=== PATIENT | male | born 1985 | race Caucasian/White ===

== ENCOUNTER 2016-09-29 16:02 | Emergency (ER) | payer OTHER ==
[~2016-09-29] VITALS: Ht 167.6 cm; Wt 90.7 kg
[2016-09-29] MEDS ORDERED: IBUPROFEN 600600 M1 PO (17:26)
[2016-09-29 17:44] VITALS: BP 126/77
== END 2016-09-29 17:44 | disposition home or self-care (01) ==
LOC: ER 16:02
DX: S61.213A Laceration without foreign body of left middle finger without damage to nail, initial encounter (principal); W27.8XXA Contact with other nonpowered hand tool, initial encounter; Y93.89 Activity, other specified; Y92.89 Other specified places as the place of occurrence of the external cause; Y99.0 Civilian activity done for income or pay

== ENCOUNTER 2016-10-11 16:23 | Emergency (ER) | payer OTHER ==
[~2016-10-11] VITALS: Ht 182.9 cm; Wt 79.4 kg
[~2016-10-11 16:23] MED LIST: IBUPROFEN 600600 M1 PO
[2016-10-11 16:38] VITALS: BP 130/79
== END 2016-10-11 17:03 | disposition home or self-care (01) ==
LOC: ER 16:23
DX: S61.213D Laceration without foreign body of left middle finger without damage to nail, subsequent encounter (principal); X58.XXXD Exposure to other specified factors, subsequent encounter; Y92.89 Other specified places as the place of occurrence of the external cause